=== PATIENT | female | born 1985 | race Caucasian/White ===

== ENCOUNTER 2016-06-16 13:37 | Emergency (ER) | payer SELFPAY ==
[2016-06-16] MEDS ORDERED: KETOROLAC TROMETHAMINE INJ 30 MG/ML VIAL IV ONE (14:30)
[2016-06-16] MEDS ORDERED: PROMETHAZINE HCL INJ 12.5 MG in SODIUM CHLORIDE 0.9% 50ML 50 ML IVPB ONE (14:30)
--- NOTE | 2016-06-16 14:30 | ED.PDOC ---
History of Present Illness - General Chief Complaint: Problem Stated Complaint: Possible Kidney Stone Time Seen by Provider: 06/16/16 14:26 Additional Information: "I HAVE A KIDNEY STONE" - History of Present Illness Timing/Duration: other - 2 DAYS Severity: mild Improving Factors: nothing Worsening Factors: nothing Associated Symptoms: other - SIMILAR TO PREVIOUS EPISODES Allergies/Adverse Reactions: Allergies NO KNOWN ALLERGY Allergy (Verified 06/16/16 14:15) Home Medications: Ambulatory Orders Alprazolam [Xanax] 1 mg PO DAILY 06/16/16 Ciprofloxacin [Cipro] 500 mg PO BID #20 ml 06/16/16 Tramadol HCl [Ultram] 50 mg PO Q6HR PRN #15 tab 06/16/16 Review of Systems - Review of Systems Constitutional: Denies: chills, fever EENTM: States: no symptoms reported Respiratory: Denies: cough, short of breath Cardiology: Denies: chest pain, palpitations, syncope Gastrointestinal/Abdominal: States: abdominal pain, nausea. Denies: constipation, diarrhea, vomiting Genitourinary: States: dysuria, frequency. Denies: hematuria Musculoskeletal: States: back pain. Denies: neck pain Skin: States: no symptoms reported Neurological: States: no symptoms reported Endocrine: States: no symptoms reported Hematologic/Lymphatic: States: no symptoms reported Past Medical History (General) - Patient Medical History Hx Stroke: No Hx Asthma: No Hx Congestive Heart Failure: No Hx Hypertension: No Hx Diabetes: No Surgical History: no surgical history - Vaccination History Hx Tetanus, Diphtheria Vaccination: No Hx Influenza Vaccination: No Hx Pneumococcal Vaccination: No Immunizations Up to Date: Yes - Social History Hx Tobacco Use: Yes Hx Chewing Tobacco Use: No Hx Alcohol Use: No Hx Substance Use: No Hx Substance Use Treatment: No Hx Depression: No Feels Threatened In Home Enviroment: No Feels Threatened In a Relationship: No Hx Physical Abuse: No Hx Emotional Abuse: No Hx Suspected Abuse: No - Activities of Daily Living Hospice Agency (if applicable):: None - Female History Patient is a Female of Child Bearing Age (10 -59 yrs old): Yes Patient : No Family Medical History - Family History Grandparents Family History: Unknown Physical Exam - Physical Exam General Appearance: Alert, Comfortable, No apparent distress Eye Exam: bilateral normal Ears, Nose, Throat: hearing grossly normal, normal ENT inspection Neck: non-tender, full range of motion, supple Respiratory: lungs clear, normal breath sounds Cardiovascular/Chest: regular rate, rhythm, no murmur Gastrointestinal/Abdominal: normal bowel sounds, non tender, soft, no organomegaly, other - MILD RLQ TTP Back Exam: normal inspection, CVA tenderness (R) Extremity: normal range of motion, non-tender, normal inspection Neurologic: alert, normal mood/affect Skin Exam: normal color, warm/dry Lymphatic: no adenopathy Progress - Progress Progress: 06/16/16 18:01 FEELS BETTER. 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 - EKG/XRAY/CT CT: CT ABDOMEN PELVIS, NOTED, CT Ordered: No CT Interpretation Call Back: No Departure - Departure Clinical Impression: Pyelonephritis Cyst, ovarian Qualifiers: Laterality: right Qualifier Code: (N83.20) Unspecified ovarian cysts Time of Disposition: 18:02 Disposition: Discharge to Home or Self Care Condition: Good Departure Forms: ED Discharge - Pt. Copy, Patient Portal Self Enrollment Instructions: Kidney Infection, Ovarian Cyst Prescriptions: Tramadol HCl [Ultram] 50 mg PO Q6HR PRN #15 tab PRN Reason: Pain Ciprofloxacin [Cipro] 500 mg PO BID #20 ml Home Medications: Ambulatory Orders Alprazolam [Xanax] 1 mg PO DAILY 06/16/16 Ciprofloxacin [Cipro] 500 mg PO BID #20 ml 06/16/16 Tramadol HCl [Ultram] 50 mg PO Q6HR PRN #15 tab 06/16/16
[2016-06-16] MEDS ORDERED: SODIUM CHLORIDE 0.9% 1000ML 1,000 ML IVS ONE (14:31)
[2016-06-16] MEDS ORDERED: PROMETHAZINE HCL INJ 25 MG/ML VIAL ONE (14:45)
[2016-06-16] MEDS ORDERED: SODIUM CHLORIDE 0.9% 50ML 50 ML ONE (14:45)
--- NOTE | 2016-06-16 17:51 | CT ---
EXAM DESCRIPTION: CT ABDOMEN AND PELVIS WITHOUT INTRAVENOUS CONTRAST CLINICAL HISTORY: Right lower quadrant pain. Evaluation for kidney stones. COMPARISON: None. TECHNIQUE: CT of the abdomen and pelvis was performed without intravenous contrast. Oral contrast was not given. FINDINGS: The lung bases included on the exam demonstrate no acute findings. The liver, gallbladder, pancreas, spleen and the bilateral adrenal glands are normal in appearance, given the limitation of the lack of IV contrast. Note is made of multiple subcentimeter nonobstructive left renal calculi. There is no hydroureteronephrosis on either side The urinary bladder is unremarkable. The small bowel is unremarkable. There is no CT evidence of acute appendicitis There is no CT evidence of acute diverticulitis, colitis or large bowel obstruction. There is no pathological retroperitoneal or pelvic lymphadenopathy or free air. There is trace amount of free fluid in the pelvis, physiologic in amount in this female patient and may be due to recent rupture of an ovarian cyst There is no clinically significant aneurysmal dilatation of the abdominal aorta. There is no CT evidence of any clinically significant inguinal or ventral hernia. The visualized lower thoracic and the lumbar spine is unremarkable. The remainder of the pelvic structures appear unremarkable. IMPRESSION: Note is made of multiple subcentimeter nonobstructive left renal calculi. There is no hydroureteronephrosis on either side There is trace amount of free fluid in the pelvis, physiologic in amount in this female patient and may be due to recent rupture of an ovarian cyst Electronically signed by: Raz Mohan MD 06/16/2016 17:49
[2016-06-16 18:54] VITALS: BP 112/73; TEMP 98.3; O2SAT 99
== END 2016-06-16 18:15 | disposition home or self-care (01) ==
LOC: ER 13:37
DX: N83.201 Unspecified ovarian cyst, right side (principal); N12 Tubulo-interstitial nephritis, not specified as acute or chronic; Z87.891 Personal history of nicotine dependence
CPT/HCPCS: 36415; 74176; 80048; 81001; 81025; 85025; A4216; J1885; J2550; J7030